=== PATIENT | male | born 1975 | race African-American/Black ===

== ENCOUNTER 2017-07-19 12:52 | Outpatient (CLI) | payer OTHER | END 2017-07-19 21:07 | disposition home or self-care (01) | LOC: MRD 12:52 | DX: C62.90 Malignant neoplasm of unspecified testis, unspecified whether descended or undescended (principal); R10.9 Unspecified abdominal pain; N50.82 Scrotal pain | CPT/HCPCS: 76770; 76870 ==

== ENCOUNTER 2019-12-04 08:13 | Outpatient (CLI) | payer OTHER | END 2019-12-04 21:13 | disposition home or self-care (01) | LOC: MLB 08:13 | DX: E29.1 Testicular hypofunction (principal) | CPT/HCPCS: 36415; 84403 ==